=== PATIENT | male | born 1930 | race Two or more races ===

== ENCOUNTER 2017-04-30 12:37 | Inpatient (IN) | payer OTHER ==
[~2017-04-30] VITALS: Ht 172.7 cm; Wt 56.0 kg
[2017-04-30] MEDS ORDERED: SODIUM CHLORIDE 0.9% 1,000 ML IV ONE ×3 (12:58→15:09)
[2017-04-30] MEDS ORDERED: IPRATROPIUM BROM 0.5 MG/2.5ML INH SOL NEB ONE ×2 (13:00→18:00)
[2017-04-30] MEDS ORDERED: ALBUTEROL SULF 2.5 MG/0.5ML(0.5%) NEB SOLN NEB ONE ×2 (13:00→18:00)
[2017-04-30] MEDS ORDERED: methylPREDNISolone SOD SUCC 125 MG/2 ML VL IV ONE (13:00)
[2017-04-30 13:40] LABS: Basophils # (auto) 0 uL; Basophils % (auto) 0.1 % (0.0-2.0); Eosinophils # (auto) 0 uL; Hematocrit 32.5 % (41.0-53.0); Hemoglobin 10.7 g/dL (13.5-17.5); Lymphocytes # (auto) 0.7 uL; Lymphocytes % (auto) 3.3 % (10.0-50.0); Mean Corpuscular Hemoglobin 29.9 pg (28.0-32.0); Mean Corpuscular Volume 90.7 fL (80.0-100.0); Mean Platelet Volume 9.4 fL (6.9-10.8); Monocytes # (auto) 0.9 uL; Monocytes % (auto) 4.2 % (0.0-12.0); Neutrophils # (auto) 20.1 uL; Neutrophils % (auto) 92.4 % (37.0-80.0); Platelet Count (auto) 177 10^3/uL (140-450); Red Cell Distribution Width 15.3 % (11.8-14.3); White Blood Cell 21.8 10^3/uL (4.4-10.8)
[2017-04-30] MEDS ORDERED: ETOMIDATE (2MG/ML) 20ML VIAL IV ONE ×3 (13:40→14:00)
[2017-04-30] MEDS ORDERED: SUCCINYLCHOLINE CHLORIDE 20 MG/ML 10ML VIAL IV ONE ×2 (13:41→13:45)
[2017-04-30 13:56] LABS: INR 0.93 (0.9-1.15); Partial Thromboplastin Time 37.2 sec (22.64-33.71); Prothrombin Time 10.1 sec (9.37-12.3)
[2017-04-30] MEDS ORDERED: PROPOFOL 100 ML IV ONE (13:58)
[2017-04-30 14:02] LABS: Albumin 3.1 g/dL (3.4-5.0); Bilirubin, Total 0.6 mg/dL (0.2-1.0); Calcium 8.7 mg/dL (8.5-10.1); Total Protein 8.6 g/dL (6.4-8.2)
[2017-04-30] MEDS: PROPOFOL 100 ML IV SCH (14:09)
[2017-04-30] MEDS: MIDAZOLAM DRIP 50 mg/50mL 50 ML IV SCH (14:15)
[2017-04-30] MEDS ORDERED: MIDAZOLAM DRIP 50 mg/50mL 50 ML IV ONE ×2 (14:16→17:49)
[2017-04-30 14:19] LABS: B-Type Natriuretic Peptide 197.2 pg/mL (0-100)
[2017-04-30 14:30] LABS: Temperature: 22.4 C (20.0-25.0)
[2017-04-30] MEDS ORDERED: AZITHROMYCIN 500MG/ 250ML 250 ML IV ONE (15:00)
[2017-04-30] MEDS ORDERED: ENOXAPARIN SOD 80 MG/0.8ML SYRINGE SC ONE (15:00)
[2017-04-30] MEDS ORDERED: cefTRIAXone 1GM/50ML D5W 50 ML IV ONE (15:00)
[2017-04-30 15:05] LABS: Base Excess -12.8 mmol/L (-2.0-2.0); Blood 02Sat 98.8 % (96-100); Blood COHb 0.3 % (0.5-1.5); Blood MetHb 0.3 % (0.0-1.5); HCO3 14.9 mmol/L (22-26.0); HHb 1.2 % (0.0-5.0); MODE VENT - A/C; O2Hb 98.2 % (94.0-97.0); PCO2 40.9 mmHg (35.0-45.0); PCO2(T) 40.9 mmHg (35.0-45.0); Sample Type Arterial; pH 7.178 (7.350-7.450)
[2017-04-30] MEDS ORDERED: VANCOMYCIN 1GM/250ML 250 ML IV ONE ×2 (16:30→20:00)
[2017-04-30] MEDS ORDERED: MORPHINE SULF INJ 2 MG/ML SYRINGE 1ML IV PRN (16:30)
[2017-04-30] MEDS ORDERED: VANCOMYCIN PER PHARMACY 0 MG IV SCH (16:30)
[2017-04-30] MEDS: SODIUM CHLORIDE 0.9% 1,000 ML IV SCH (16:30)
[2017-04-30] MEDS ORDERED: NITROGLYCERIN 0.4 MG SL TAB SL PRN (16:30)
[2017-04-30] MEDS ORDERED: ACETAMINOPHEN 325 MG TAB PO PRN (16:30)
[2017-04-30 17:35] VITALS: BP 105/53
[2017-04-30 18:09] LABS: Basophils # (auto) 0 uL; Eosinophils # (auto) 0 uL; Lymphocytes # (auto) 0.2 uL
[2017-04-30 18:11] LABS: Hematocrit 24.4 % (41.0-53.0); Hemoglobin 8.1 g/dL (13.5-17.5); Mean Corpuscular Hemoglobin 30.5 pg (28.0-32.0); Mean Corpuscular Hgb Conc. 33.1 g/dL (32.0-36.0); Mean Corpuscular Volume 92.1 fL (80.0-100.0); Mean Platelet Volume 9.7 fL (6.9-10.8); Monocytes # (auto) 0.5 uL; Neutrophils # (auto) 14.5 uL; Platelet Count (auto) 128 10^3/uL (140-450); Red Cell Distribution Width 15.1 % (11.8-14.3); White Blood Cell 15.1 10^3/uL (4.4-10.8)
[2017-04-30 18:24] LABS: INR 0.96 (0.9-1.15); Partial Thromboplastin Time 60.6 sec (22.64-33.71); Prothrombin Time 10.5 sec (9.37-12.3)
[2017-04-30] MEDS: PIPERACILLIN-TAZOB 2.25GM 50 ML IV SCH (18:41)
[2017-04-30 18:45] LABS: Albumin 2.2 g/dL (3.4-5.0); BUN/Creatinine Ratio 14.7; Bilirubin, Total 0.3 mg/dL (0.2-1.0); Calcium 7.3 mg/dL (8.5-10.1); Magnesium 2.4 mg/dL (1.6-2.6); Potassium 5.3 mmol/L (3.5-5.1); Total Protein 6.7 g/dL (6.4-8.2)
[2017-04-30 20:00] VITALS: BP 110/51
[2017-04-30 20:00] LABS: Urine Bilirubin Negative (Negative); Urine Blood 2+ /uL (Negative); Urine Color Yellow (Yellow); Urine Glucose 2+ mg/dL (Normal); Urine Ketone Negative (Negative); Urine Nitrite Negative (Negative); Urine RBC 358 /hpf (0 - 3); Urine Urobilinogen Normal (Negative)
[2017-04-30 21:42] LABS: Allen Test Yes; Blood 02Sat 97.2 % (96-100); Blood COHb 0.1 % (0.5-1.5); Blood MetHb 0.2 % (0.0-1.5); HCO3 13.8 mmol/L (22-26.0); HHb 2.8 % (0.0-5.0); MODE VENT - A/C; O2Hb 96.9 % (94.0-97.0); PCO2 35.3 mmHg (35.0-45.0); PCO2(T) 35.3 mmHg (35.0-45.0); PO2 116.5 mmHg (80.0-100.0); PO2(T) 116.5 mmHg (80.0-100.0); Room 1016-ERT; Sample Type Arterial; pH 7.211 (7.350-7.450)
[2017-04-30 22:33] VITALS: BP 93/45
[2017-04-30] MEDS: methylPREDNISolone SOD SUCC 40 MG/ML VL IV SCH (22:40)
[2017-04-30 23:07] VITALS: BP 93/45
[2017-04-30 23:52] VITALS: BP 100/52
[2017-04-30] MEDS: ALBUTEROL SULF 2.5 MG/0.5ML(0.5%) NEB SOLN NEB SCH (23:56)
[2017-04-30] MEDS: IPRATROPIUM BROM 0.5 MG/2.5ML INH SOL NEB SCH (23:57)
[2017-05-01] VITALS (62 sets, daily range): BP systolic 83–139; BP diastolic 41–73
[2017-05-01 01:02] LABS: Basophils # (auto) 0 uL; Basophils % (auto) 0.1 % (0.0-2.0); Eosinophils # (auto) 0 uL; Lymphocytes # (auto) 0.3 uL; Monocytes # (auto) 0.3 uL; Monocytes % (auto) 3.2 % (0.0-12.0); Red Cell Distribution Width 15.4 % (11.8-14.3)
[2017-05-01 01:03] LABS: Hematocrit 24.5 % (41.0-53.0); Lymphocytes % (auto) 3.1 % (10.0-50.0); Mean Corpuscular Hemoglobin 30.3 pg (28.0-32.0); Mean Corpuscular Hgb Conc. 32.4 g/dL (32.0-36.0); Mean Corpuscular Volume 93.6 fL (80.0-100.0); Neutrophils # (auto) 9.2 uL; Neutrophils % (auto) 93.6 % (37.0-80.0); Platelet Count (auto) 117 10^3/uL (140-450); White Blood Cell 9.8 10^3/uL (4.4-10.8)
[2017-05-01 01:19] LABS: Albumin 2.2 g/dL (3.4-5.0); BUN/Creatinine Ratio 15.1; Bilirubin, Total 0.3 mg/dL (0.2-1.0); Calcium 7.5 mg/dL (8.5-10.1); Potassium 5.3 mmol/L (3.5-5.1); Total Protein 6.6 g/dL (6.4-8.2)
[2017-05-01] MEDS: PIPERACILLIN-TAZOB 2.25GM 50 ML IV SCH ×3 (01:39→17:16)
[2017-05-01 01:55] LABS: INR 0.92 (0.9-1.15); Partial Thromboplastin Time 40.6 sec (22.64-33.71)
[2017-05-01] MEDS ORDERED: FUROSEMIDE 100 MG/10ML VIAL IV ONE (04:15)
[2017-05-01] MEDS: SODIUM CHLORIDE 0.9% 1,000 ML IV SCH (05:00)
[2017-05-01] MEDS: methylPREDNISolone SOD SUCC 40 MG/ML VL IV SCH ×3 (06:00→22:37)
[2017-05-01 06:02] LABS: Basophils # (auto) 0 uL; Eosinophils # (auto) 0 uL; Hemoglobin 8.1 g/dL (13.5-17.5); Monocytes # (auto) 0.5 uL; Nucleated Red Blood Cells % 0.1 %; Platelet Count (auto) 117 10^3/uL (140-450)
[2017-05-01 06:04] LABS: Hematocrit 24.2 % (41.0-53.0); Lymphocytes # (auto) 0.5 uL; Lymphocytes % (auto) 5.2 % (10.0-50.0); Mean Corpuscular Hemoglobin 30.8 pg (28.0-32.0); Mean Corpuscular Hgb Conc. 33.5 g/dL (32.0-36.0); Mean Platelet Volume 9.5 fL (6.9-10.8); Monocytes % (auto) 5.8 % (0.0-12.0); Neutrophils # (auto) 8.2 uL; White Blood Cell 9.2 10^3/uL (4.4-10.8)
[2017-05-01] MEDS: ALBUTEROL SULF 2.5 MG/0.5ML(0.5%) NEB SOLN NEB SCH ×3 (06:04→18:30)
[2017-05-01] MEDS: IPRATROPIUM BROM 0.5 MG/2.5ML INH SOL NEB SCH ×3 (06:04→18:30)
[2017-05-01 06:18] LABS: INR 0.91 (0.9-1.15); Partial Thromboplastin Time 46.8 sec (22.64-33.71); Prothrombin Time 9.9 sec (9.37-12.3)
[2017-05-01 06:30] LABS: Albumin 2.1 g/dL (3.4-5.0); Calcium 7.8 mg/dL (8.5-10.1); Magnesium 2.5 mg/dL (1.6-2.6); Potassium 5.3 mmol/L (3.5-5.1)
[2017-05-01 06:33] LABS: BUN/Creatinine Ratio 14.7; Bilirubin, Total 0.3 mg/dL (0.2-1.0); Total Protein 6.5 g/dL (6.4-8.2)
[2017-05-01 07:58] LABS: Allen Test No; Base Excess -15.1 mmol/L (-2.0-2.0); Blood 02Sat 97.8 % (96-100); Blood COHb 0.2 % (0.5-1.5); Blood MetHb 0.2 % (0.0-1.5); HCO3 12.2 mmol/L (22-26.0); HHb 2.2 % (0.0-5.0); MODE VENT - A/C; O2Hb 97.4 % (94.0-97.0); PCO2 33.7 mmHg (35.0-45.0); PCO2(T) 33.7 mmHg (35.0-45.0); PO2 131.9 mmHg (80.0-100.0); PO2(T) 131.9 mmHg (80.0-100.0); Sample Type Arterial; pH 7.176 (7.350-7.450)
[2017-05-01] MEDS ORDERED: SODIUM BICARBONATE 50ML VIAL 75 ML in SOD CHL 0.45% 1,000 ML IV SCH (08:00)
[2017-05-01] MEDS: MIDAZOLAM DRIP 50 mg/50mL 50 ML IV SCH ×2 (09:03→14:00)
[2017-05-01] MEDS ORDERED: SODIUM BICARBONATE 50ML VIAL 150 ML in SOD CHL 0.45% 1,000 ML IV SCH (09:30)
[2017-05-01] MEDS ORDERED: SODIUM BICARBONATE 8.4 % INJ 50ML VIAL IV ONE ×2 (09:30→13:30)
[2017-05-01] MEDS ORDERED: DEXTROSE (50%) 50ML SYRG IV ONE (12:30)
[2017-05-01] MEDS ORDERED: InsuLIN REG 1unit/0.01ml Soln (100units/ml) IV ONE (12:30)
[2017-05-01 12:31] LABS: Allen Test Modified; Base Excess -9.2 mmol/L (-2.0-2.0); Blood 02Sat 97.7 % (96-100); Blood COHb 0.2 % (0.5-1.5); Blood MetHb 0.3 % (0.0-1.5); HCO3 17.2 mmol/L (22-26.0); HHb 2.3 % (0.0-5.0); MODE VENT - A/C; O2Hb 97.2 % (94.0-97.0); PCO2 39.3 mmHg (35.0-45.0); PCO2(T) 39.3 mmHg (35.0-45.0); PO2 126.7 mmHg (80.0-100.0); PO2(T) 126.7 mmHg (80.0-100.0); Sample Type Arterial; pH 7.258 (7.350-7.450)
[2017-05-01] MEDS ORDERED: FUROSEMIDE 40 MG/4 ML VIAL IV ONE (13:30)
[2017-05-01] MEDS: SODIUM BICARBONATE 50ML VIAL 150 ML in SOD CHL 0.45% 1,000 ML IV SCH (13:55)
[2017-05-01] MEDS ORDERED: IPRATROPIUM BROM 0.5 MG/2.5ML INH SOL NEB SCH (18:00)
[2017-05-01] MEDS ORDERED: ALBUTEROL SULF 2.5 MG/0.5ML(0.5%) NEB SOLN NEB SCH (18:00)
[2017-05-01 18:40] LABS: Basophils # (auto) 0 uL; Basophils % (auto) 0.1 % (0.0-2.0); Eosinophils # (auto) 0 uL; Hematocrit 24.7 % (41.0-53.0); Hemoglobin 8.2 g/dL (13.5-17.5); Lymphocytes # (auto) 0.4 uL; Lymphocytes % (auto) 5.1 % (10.0-50.0); Mean Corpuscular Hemoglobin 30.1 pg (28.0-32.0); Mean Corpuscular Hgb Conc. 33.2 g/dL (32.0-36.0); Mean Corpuscular Volume 90.6 fL (80.0-100.0); Mean Platelet Volume 9.4 fL (6.9-10.8); Monocytes # (auto) 0.6 uL; Monocytes % (auto) 7.5 % (0.0-12.0); Neutrophils # (auto) 7.3 uL; Neutrophils % (auto) 87.3 % (37.0-80.0); Nucleated Red Blood Cells % 0.2 %; Platelet Count (auto) 119 10^3/uL (140-450); Red Cell Distribution Width 14.9 % (11.8-14.3); White Blood Cell 8.4 10^3/uL (4.4-10.8)
[2017-05-01 18:44] LABS: INR 0.95 (0.9-1.15); Partial Thromboplastin Time 39.1 sec (22.64-33.71); Prothrombin Time 10.3 sec (9.37-12.3)
[2017-05-01 18:51] LABS: Albumin 1.9 g/dL (3.4-5.0); Alkaline Phosphatase 61 U/L (45-117); Anion Gap 15 (5-15); Aspartate Aminotransferase 101 U/L (15-37); BUN/Creatinine Ratio 16.6; Bilirubin, Direct < 0.1 mg/dL (0-0.2); Bilirubin, Total 0.3 mg/dL (0.2-1.0); Calcium 7.4 mg/dL (8.5-10.1); Carbon Dioxide 21 mmol/L (21-32); Chloride 107 mmol/L (98-107); GFR African American 11 mL/min; GFR Non-African American 9 mL/min; Glucose 152 mg/dL (74-106); Magnesium 2.6 mg/dL (1.6-2.6); Potassium 4.2 mmol/L (3.5-5.1); Sodium 143 mmol/L (136-145); Total Protein 6.2 g/dL (6.4-8.2)
[2017-05-01 18:55] LABS: Blood Urea Nitrogen 101 mg/dL (7-18)
[2017-05-01] MEDS: PROPOFOL 100 ML IV SCH (21:28)
[2017-05-02] VITALS (82 sets, daily range): BP systolic 90–145; BP diastolic 44–75
[2017-05-02] MEDS: IPRATROPIUM BROM 0.5 MG/2.5ML INH SOL NEB SCH ×4 (00:13→18:36)
[2017-05-02] MEDS: ALBUTEROL SULF 2.5 MG/0.5ML(0.5%) NEB SOLN NEB SCH ×4 (00:13→18:36)
[2017-05-02] MEDS ORDERED: SODIUM BICARBONATE 8.4% INJ 50ML SYRINGE ONE ×2 (00:37→00:55)
[2017-05-02] MEDS: PIPERACILLIN-TAZOB 2.25GM 50 ML IV SCH ×3 (00:52→16:38)
[2017-05-02 04:01] LABS: Basophils # (auto) 0 uL; Basophils % (auto) 0.1 % (0.0-2.0); Eosinophils # (auto) 0 uL; Hematocrit 23.2 % (41.0-53.0); Hemoglobin 7.9 g/dL (13.5-17.5); Mean Corpuscular Hemoglobin 30.4 pg (28.0-32.0); Mean Corpuscular Hgb Conc. 33.9 g/dL (32.0-36.0); Mean Platelet Volume 9.4 fL (6.9-10.8); Monocytes # (auto) 0.4 uL; Nucleated Red Blood Cells % 0.2 %; Red Cell Distribution Width 14.6 % (11.8-14.3)
[2017-05-02 04:05] LABS: Lymphocytes # (auto) 0.4 uL; Lymphocytes % (auto) 5.3 % (10.0-50.0); Mean Corpuscular Volume 89.7 fL (80.0-100.0); Neutrophils # (auto) 7.2 uL; Neutrophils % (auto) 89.6 % (37.0-80.0); Platelet Count (auto) 144 10^3/uL (140-450); White Blood Cell 8.1 10^3/uL (4.4-10.8)
[2017-05-02 04:24] LABS: INR 0.96 (0.9-1.15); Partial Thromboplastin Time 35.7 sec (22.64-33.71); Prothrombin Time 10.5 sec (9.37-12.3)
[2017-05-02 04:33] LABS: Alkaline Phosphatase 59 U/L (45-117); Anion Gap 15 (5-15); Aspartate Aminotransferase 74 U/L (15-37); BUN/Creatinine Ratio 16.4; Bilirubin, Direct < 0.1 mg/dL (0-0.2); Bilirubin, Total 0.3 mg/dL (0.2-1.0); Calcium 7.2 mg/dL (8.5-10.1); Carbon Dioxide 23 mmol/L (21-32); Chloride 106 mmol/L (98-107); GFR African American 11 mL/min; GFR Non-African American 9 mL/min; Glucose 149 mg/dL (74-106); Magnesium 2.6 mg/dL (1.6-2.6); Potassium 4.1 mmol/L (3.5-5.1); Sodium 144 mmol/L (136-145); Total Protein 6.3 g/dL (6.4-8.2)
[2017-05-02 04:41] LABS: Blood Urea Nitrogen 100 mg/dL (7-18)
[2017-05-02] MEDS: SODIUM BICARBONATE 50ML VIAL 150 ML in SOD CHL 0.45% 1,000 ML IV SCH (04:50)
[2017-05-02] MEDS: methylPREDNISolone SOD SUCC 40 MG/ML VL IV SCH ×3 (05:53→22:24)
[2017-05-02 07:35] LABS: Base Excess -0.4 mmol/L (-2.0-2.0); Blood 02Sat 93.4 % (96-100); Blood COHb 0.4 % (0.5-1.5); Blood MetHb 0.3 % (0.0-1.5); HCO3 24.1 mmol/L (22-26.0); HHb 6.6 % (0.0-5.0); MODE VENT - A/C; O2Hb 92.7 % (94.0-97.0); PCO2 38.8 mmHg (35.0-45.0); PCO2(T) 38.8 mmHg (35.0-45.0); PO2 72.5 mmHg (80.0-100.0); PO2(T) 72.5 mmHg (80.0-100.0); Sample Type Arterial; pH 7.411 (7.350-7.450)
[2017-05-02] MEDS: SOD CHL 0.45% 1,000 ML IV SCH ×3 (08:30→22:25)
[2017-05-02] MEDS: MIDAZOLAM DRIP 50 mg/50mL 50 ML IV SCH (09:51)
[2017-05-02] MEDS: PROPOFOL 100 ML IV SCH (09:51)
[2017-05-02] MEDS: PANTOPRAZOLE 40 MG/10 ML VIAL IV SCH (09:51)
[2017-05-02 12:42] LABS: Allen Test Yes; Base Excess 1.6 mmol/L (-2.0-2.0); Blood 02Sat 93.4 % (96-100); Blood COHb 0.3 % (0.5-1.5); Blood MetHb 0.4 % (0.0-1.5); HCO3 26.3 mmol/L (22-26.0); HHb 6.6 % (0.0-5.0); MODE VENT - SIMV; O2Hb 92.7 % (94.0-97.0); PCO2 41.9 mmHg (35.0-45.0); PCO2(T) 41.9 mmHg (35.0-45.0); PO2 75.9 mmHg (80.0-100.0); PO2(T) 75.9 mmHg (80.0-100.0); Pressure Support 10; Sample Type Arterial; pH 7.415 (7.350-7.450)
[2017-05-02] MEDS: cefTRIAXone 1GM/50ML D5W 50 ML IV SCH (14:02)
[2017-05-02 18:32] LABS: Base Excess -0.9 mmol/L (-2.0-2.0); Blood 02Sat 94.9 % (96-100); Blood COHb 0.2 % (0.5-1.5); Blood MetHb 0.4 % (0.0-1.5); HCO3 23.3 mmol/L (22-26.0); HHb 5.1 % (0.0-5.0); MODE VENT - SIMV; O2Hb 94.3 % (94.0-97.0); PCO2 36.2 mmHg (35.0-45.0); PCO2(T) 36.2 mmHg (35.0-45.0); Pressure Support 10; Sample Type Arterial; pH 7.426 (7.350-7.450)
[2017-05-03] VITALS (72 sets, daily range): BP systolic 104–151; BP diastolic 54–77
[2017-05-03] MEDS: ALBUTEROL SULF 2.5 MG/0.5ML(0.5%) NEB SOLN NEB SCH ×4 (00:24→18:50)
[2017-05-03] MEDS: IPRATROPIUM BROM 0.5 MG/2.5ML INH SOL NEB SCH ×4 (00:24→18:50)
[2017-05-03] MEDS: PIPERACILLIN-TAZOB 2.25GM 50 ML IV SCH ×4 (01:00→23:48)
[2017-05-03 04:08] LABS: Basophils # (auto) 0 uL; Eosinophils # (auto) 0 uL; Hemoglobin 7.7 g/dL (13.5-17.5); Lymphocytes # (auto) 0.3 uL; Monocytes # (auto) 0.2 uL
[2017-05-03 04:11] LABS: Basophils % (auto) 0.1 % (0.0-2.0); Hematocrit 22.4 % (41.0-53.0); Lymphocytes % (auto) 5.6 % (10.0-50.0); Mean Corpuscular Hemoglobin 30.5 pg (28.0-32.0); Mean Corpuscular Hgb Conc. 34.4 g/dL (32.0-36.0); Mean Corpuscular Volume 88.7 fL (80.0-100.0); Mean Platelet Volume 9.2 fL (6.9-10.8); Monocytes % (auto) 3.4 % (0.0-12.0); Neutrophils # (auto) 5.4 uL; Neutrophils % (auto) 90.9 % (37.0-80.0); Nucleated Red Blood Cells % 0.1 %; Platelet Count (auto) 150 10^3/uL (140-450); Red Cell Distribution Width 14.4 % (11.8-14.3)
[2017-05-03 04:37] LABS: Calcium 6.6 mg/dL (8.5-10.1); Magnesium 2.6 mg/dL (1.6-2.6); Potassium 3.9 mmol/L (3.5-5.1)
[2017-05-03] MEDS: methylPREDNISolone SOD SUCC 40 MG/ML VL IV SCH ×3 (04:39→22:16)
[2017-05-03 07:04] LABS: Allen Test Yes; Base Excess -2.6 mmol/L (-2.0-2.0); Blood COHb 0.1 % (0.5-1.5); Blood MetHb 0.3 % (0.0-1.5); HCO3 22.2 mmol/L (22-26.0); MODE VENT - SIMV; O2Hb 93.6 % (94.0-97.0); PCO2 38.2 mmHg (35.0-45.0); PCO2(T) 38.2 mmHg (35.0-45.0); PIP 15; PO2 81.8 mmHg (80.0-100.0); PO2(T) 81.8 mmHg (80.0-100.0); Pressure Support 10; Sample Type Arterial; Spont Vt 457; pH 7.382 (7.350-7.450)
[2017-05-03] MEDS: cefTRIAXone 1GM/50ML D5W 50 ML IV SCH (07:52)
[2017-05-03] MEDS ORDERED: cefTRIAXone 1GM/10ml IVPUSH 10 ML IV SCH (09:00)
[2017-05-03] MEDS: PANTOPRAZOLE 40 MG/10 ML VIAL IV SCH (09:44)
[2017-05-03] MEDS: PROPOFOL 100 ML IV SCH (14:07)
[2017-05-03] MEDS: MIDAZOLAM DRIP 50 mg/50mL 50 ML IV SCH (14:15)
[2017-05-03] MEDS: SOD CHL 0.45% 1,000 ML IV SCH (14:30)
[2017-05-04] VITALS (53 sets, daily range): BP systolic 119–159; BP diastolic 56–92
[2017-05-04] MEDS: IPRATROPIUM BROM 0.5 MG/2.5ML INH SOL NEB SCH ×4 (00:30→18:01)
[2017-05-04] MEDS: SOD CHL 0.45% 1,000 ML IV SCH ×3 (00:30→20:30)
[2017-05-04] MEDS: ALBUTEROL SULF 2.5 MG/0.5ML(0.5%) NEB SOLN NEB SCH ×4 (00:30→18:01)
[2017-05-04 05:08] LABS: Basophils # (auto) 0 uL; Basophils % (auto) 0.1 % (0.0-2.0); Eosinophils # (auto) 0 uL; Lymphocytes # (auto) 0.3 uL; Monocytes # (auto) 0.1 uL; Neutrophils # (auto) 4.1 uL; Nucleated Red Blood Cells % 0.4 %
[2017-05-04 05:10] LABS: Hematocrit 22.9 % (41.0-53.0); Hemoglobin 7.7 g/dL (13.5-17.5); Lymphocytes % (auto) 7.1 % (10.0-50.0); Mean Corpuscular Hemoglobin 30.4 pg (28.0-32.0); Mean Corpuscular Hgb Conc. 33.6 g/dL (32.0-36.0); Mean Corpuscular Volume 90.5 fL (80.0-100.0); Mean Platelet Volume 8.7 fL (6.9-10.8); Monocytes % (auto) 2.7 % (0.0-12.0); Neutrophils % (auto) 90.1 % (37.0-80.0); Platelet Count (auto) 146 10^3/uL (140-450); White Blood Cell 4.6 10^3/uL (4.4-10.8)
[2017-05-04 05:27] LABS: Albumin 1.9 g/dL (3.4-5.0); BUN/Creatinine Ratio 20.4; Bilirubin, Total 0.3 mg/dL (0.2-1.0); Calcium 6.4 mg/dL (8.5-10.1); Potassium 4.2 mmol/L (3.5-5.1); Total Protein 6.1 g/dL (6.4-8.2)
[2017-05-04] MEDS: methylPREDNISolone SOD SUCC 40 MG/ML VL IV SCH ×3 (06:00→22:00)
[2017-05-04] MEDS ORDERED: cefTRIAXone 1GM/10ml IVPUSH 10 ML IV SCH (09:00)
[2017-05-04] MEDS: PANTOPRAZOLE 40 MG/10 ML VIAL IV SCH (10:30)
[2017-05-04] MEDS: PIPERACILLIN-TAZOB 2.25GM 50 ML IV SCH ×2 (10:30→18:14)
[2017-05-04] MEDS: PROPOFOL 100 ML IV SCH (14:07)
[2017-05-04] MEDS: MIDAZOLAM DRIP 50 mg/50mL 50 ML IV SCH (14:15)
[2017-05-04] MEDS ORDERED: MORPHINE SULF INJ 2 MG/ML SYRINGE 1ML ONE (16:12)
[2017-05-04] MEDS: MORPHINE SULF INJ 2 MG/ML SYRINGE 1ML IV PRN ×2 (16:37→20:35)
[2017-05-05] VITALS (73 sets, daily range): BP systolic 123–160; BP diastolic 55–87
[2017-05-05] MEDS: ALBUTEROL SULF 2.5 MG/0.5ML(0.5%) NEB SOLN NEB SCH ×4 (00:04→18:33)
[2017-05-05] MEDS: IPRATROPIUM BROM 0.5 MG/2.5ML INH SOL NEB SCH ×4 (00:04→18:34)
[2017-05-05] MEDS: PIPERACILLIN-TAZOB 2.25GM 50 ML IV SCH ×3 (02:09→18:02)
[2017-05-05 04:35] LABS: Basophils # (auto) 0 uL; Basophils % (auto) 0.1 % (0.0-2.0); Eosinophils # (auto) 0 uL; Hematocrit 27.2 % (41.0-53.0); Lymphocytes # (auto) 0.3 uL; Lymphocytes % (auto) 6.4 % (10.0-50.0); Mean Corpuscular Hgb Conc. 33.2 g/dL (32.0-36.0); Mean Corpuscular Volume 90.4 fL (80.0-100.0); Mean Platelet Volume 8.2 fL (6.9-10.8); Monocytes # (auto) 0.1 uL; Monocytes % (auto) 2.1 % (0.0-12.0); Neutrophils # (auto) 4.3 uL; Neutrophils % (auto) 91.4 % (37.0-80.0); Platelet Count (auto) 158 10^3/uL (140-450); Red Cell Distribution Width 14.3 % (11.8-14.3); White Blood Cell 4.7 10^3/uL (4.4-10.8)
[2017-05-05 04:51] LABS: Calcium 6.9 mg/dL (8.5-10.1); Potassium 4.4 mmol/L (3.5-5.1)
[2017-05-05] MEDS: methylPREDNISolone SOD SUCC 40 MG/ML VL IV SCH ×3 (06:00→22:11)
[2017-05-05] MEDS: SOD CHL 0.45% 1,000 ML IV SCH (06:30)
[2017-05-05 07:49] LABS: Allen Test Modified; Base Excess -8.1 mmol/L (-2.0-2.0); Blood COHb 0.3 % (0.5-1.5); Blood MetHb 0.3 % (0.0-1.5); HCO3 18.4 mmol/L (22-26.0); MODE VENT - SIMV; O2Hb 94.4 % (94.0-97.0); PCO2 41.7 mmHg (35.0-45.0); PCO2(T) 41.7 mmHg (35.0-45.0); PO2 89.8 mmHg (80.0-100.0); PO2(T) 89.8 mmHg (80.0-100.0); Pressure Support 8; Sample Type Arterial; pH 7.262 (7.350-7.450)
[2017-05-05] MEDS: MORPHINE SULF INJ 2 MG/ML SYRINGE 1ML IV PRN ×3 (08:34→19:26)
[2017-05-05 09:20] LABS: INR 1.2 (0.9-1.15); Partial Thromboplastin Time 33.6 sec (22.64-33.71); Prothrombin Time 13.1 sec (9.37-12.3)
[2017-05-05] MEDS ORDERED: SOD CHL 0.45% 1,000 ML IV SCH (09:45)
[2017-05-05] MEDS ORDERED: SODIUM BICARBONATE 8.4 % INJ 50ML VIAL IV ONE (09:45)
[2017-05-05] MEDS ORDERED: D5W 5% 1,000 ML IV SCH (10:00)
[2017-05-05] MEDS: PANTOPRAZOLE 40 MG/10 ML VIAL IV SCH (10:15)
[2017-05-05] MEDS ORDERED: SODIUM CHL 0.9% 1000 ML BAG XX ONE (10:15)
[2017-05-05] MEDS ORDERED: PHYTONADIONE (VIT K)10 MG/ML 1ML VIAL SUBCUT ONE (10:45)
[2017-05-05 11:02] LABS: Allen Test Modified; Base Excess -9.5 mmol/L (-2.0-2.0); Blood 02Sat 94.7 % (96-100); Blood COHb 0.2 % (0.5-1.5); Blood MetHb 0.2 % (0.0-1.5); HCO3 17.4 mmol/L (22-26.0); HHb 5.3 % (0.0-5.0); MODE VENT - A/C; O2Hb 94.3 % (94.0-97.0); PCO2 41.8 mmHg (35.0-45.0); PCO2(T) 41.8 mmHg (35.0-45.0); PO2 90.5 mmHg (80.0-100.0); PO2(T) 90.5 mmHg (80.0-100.0); Sample Type Arterial; pH 7.236 (7.350-7.450)
[2017-05-05] MEDS: PROPOFOL 100 ML IV SCH (14:07)
[2017-05-05] MEDS: MIDAZOLAM DRIP 50 mg/50mL 50 ML IV SCH (14:15)
[2017-05-05 15:29] LABS: Allen Test Modified; Base Excess -7.4 mmol/L (-2.0-2.0); Blood 02Sat 94.9 % (96-100); Blood COHb 0.2 % (0.5-1.5); Blood MetHb 0.2 % (0.0-1.5); HHb 5.1 % (0.0-5.0); MODE VENT - A/C; O2Hb 94.5 % (94.0-97.0); PCO2 30.3 mmHg (35.0-45.0); PCO2(T) 30.3 mmHg (35.0-45.0); PO2 81.1 mmHg (80.0-100.0); PO2(T) 81.1 mmHg (80.0-100.0); Sample Type Arterial; pH 7.367 (7.350-7.450)
[2017-05-05] MEDS: SODIUM BICARB 50ML SYR 100 ML in D5W 5% 1,000 ML IV SCH ×2 (16:00→21:15)
[2017-05-05] MEDS ORDERED: MORPHINE SULF INJ 2 MG/ML SYRINGE 1ML IV ONE (21:30)
[2017-05-06] VITALS (78 sets, daily range): BP systolic 118–210; BP diastolic 60–104
[2017-05-06] MEDS: IPRATROPIUM BROM 0.5 MG/2.5ML INH SOL NEB SCH ×4 (00:16→18:30)
[2017-05-06] MEDS: ALBUTEROL SULF 2.5 MG/0.5ML(0.5%) NEB SOLN NEB SCH ×4 (00:16→18:30)
[2017-05-06] MEDS: PIPERACILLIN-TAZOB 2.25GM 50 ML IV SCH ×3 (02:00→18:12)
[2017-05-06] MEDS: SODIUM BICARB 50ML SYR 100 ML in D5W 5% 1,000 ML IV SCH ×3 (02:20→18:31)
[2017-05-06 03:31] LABS: Basophils # (auto) 0 uL; Basophils % (auto) 0.1 % (0.0-2.0); Eosinophils # (auto) 0 uL; Hematocrit 25.6 % (41.0-53.0); Hemoglobin 8.7 g/dL (13.5-17.5); Lymphocytes # (auto) 0.3 uL; Lymphocytes % (auto) 5.9 % (10.0-50.0); Mean Corpuscular Hemoglobin 30.1 pg (28.0-32.0); Mean Corpuscular Volume 88.5 fL (80.0-100.0); Mean Platelet Volume 8.3 fL (6.9-10.8); Monocytes # (auto) 0.2 uL; Monocytes % (auto) 3.8 % (0.0-12.0); Neutrophils # (auto) 4.2 uL; Neutrophils % (auto) 90.2 % (37.0-80.0); Nucleated Red Blood Cells % 0.1 %; Platelet Count (auto) 157 10^3/uL (140-450); Red Cell Distribution Width 13.8 % (11.8-14.3); White Blood Cell 4.6 10^3/uL (4.4-10.8)
[2017-05-06 03:45] LABS: BUN/Creatinine Ratio 23.8; Potassium 3.9 mmol/L (3.5-5.1)
[2017-05-06] MEDS: methylPREDNISolone SOD SUCC 40 MG/ML VL IV SCH ×3 (05:40→22:39)
[2017-05-06 06:43] LABS: Allen Test Modified; Base Excess -3.1 mmol/L (-2.0-2.0); Blood 02Sat 95.7 % (96-100); Blood COHb 0.3 % (0.5-1.5); Blood MetHb 0.3 % (0.0-1.5); HCO3 20.5 mmol/L (22-26.0); HHb 4.3 % (0.0-5.0); MODE VENT - A/C; O2Hb 95.1 % (94.0-97.0); Sample Type Arterial; pH 7.438 (7.350-7.450)
[2017-05-06] MEDS: PROPOFOL 100 ML IV SCH (14:07)
[2017-05-06] MEDS: MIDAZOLAM DRIP 50 mg/50mL 50 ML IV SCH (14:15)
[2017-05-06 14:59] LABS: Allen Test Modified; Blood 02Sat 92.6 % (96-100); Blood COHb 0.2 % (0.5-1.5); Blood MetHb 0.1 % (0.0-1.5); HCO3 25.5 mmol/L (22-26.0); HHb 7.4 % (0.0-5.0); MODE VENT - CPAP; O2Hb 92.3 % (94.0-97.0); PCO2 28.5 mmHg (35.0-45.0); PCO2(T) 28.5 mmHg (35.0-45.0); PO2 64.9 mmHg (80.0-100.0); PO2(T) 64.9 mmHg (80.0-100.0); Pressure Support 8; Sample Type Arterial; Spont Vt 800
[2017-05-06] MEDS: PANTOPRAZOLE 40 MG/10 ML VIAL IV SCH (15:05)
[2017-05-06] MEDS: hydrALAZINE HCL 20 MG/ML VL IV PRN (20:42)
[2017-05-07] VITALS (21 sets, daily range): BP systolic 129–199; BP diastolic 62–89
[2017-05-07] MEDS: ALBUTEROL SULF 2.5 MG/0.5ML(0.5%) NEB SOLN NEB SCH ×4 (00:03→18:42)
[2017-05-07] MEDS: IPRATROPIUM BROM 0.5 MG/2.5ML INH SOL NEB SCH ×4 (00:03→18:42)
[2017-05-07] MEDS: PIPERACILLIN-TAZOB 2.25GM 50 ML IV SCH ×3 (01:36→17:37)
[2017-05-07 04:41] LABS: BUN/Creatinine Ratio 20.9; Calcium 7.2 mg/dL (8.5-10.1); Potassium 3.3 mmol/L (3.5-5.1)
[2017-05-07 04:46] LABS: Basophils # (auto) 0 uL; Basophils % (auto) 0.1 % (0.0-2.0); Eosinophils # (auto) 0 uL; Hematocrit 27.5 % (41.0-53.0); Lymphocytes # (auto) 0.3 uL; Lymphocytes % (auto) 2.5 % (10.0-50.0); Mean Corpuscular Hemoglobin 29.5 pg (28.0-32.0); Mean Corpuscular Hgb Conc. 32.6 g/dL (32.0-36.0); Mean Corpuscular Volume 90.4 fL (80.0-100.0); Mean Platelet Volume 8.8 fL (6.9-10.8); Monocytes # (auto) 0.5 uL; Monocytes % (auto) 4.8 % (0.0-12.0); Neutrophils # (auto) 10.4 uL; Neutrophils % (auto) 92.6 % (37.0-80.0); Platelet Count (auto) 167 10^3/uL (140-450); Red Cell Distribution Width 14.1 % (11.8-14.3); White Blood Cell 11.3 10^3/uL (4.4-10.8)
[2017-05-07] MEDS: methylPREDNISolone SOD SUCC 40 MG/ML VL IV SCH ×3 (07:05→21:25)
[2017-05-07] MEDS: D5W/SOD CHL 0.45% 1,000 ML IV SCH (10:00)
[2017-05-07] MEDS ORDERED: POTASSIUM CHL 20 Meq TABLET PO ONE (10:00)
[2017-05-07] MEDS: PANTOPRAZOLE 40 MG/10 ML VIAL IV SCH (10:00)
[2017-05-07] MEDS: hydrALAZINE HCL 20 MG/ML VL IV PRN (17:16)
[2017-05-08] MEDS: D5W/SOD CHL 0.45% 1,000 ML IV SCH ×2 (00:39→12:40)
[2017-05-08 04:34] VITALS: BP 152/72
[2017-05-08 05:17] LABS: Basophils # (auto) 0 uL; Eosinophils # (auto) 0 uL; Hemoglobin 8.1 g/dL (13.5-17.5); Monocytes # (auto) 1.1 uL
[2017-05-08 05:19] LABS: Hematocrit 24.1 % (41.0-53.0); Lymphocytes # (auto) 0.4 uL; Lymphocytes % (auto) 3.3 % (10.0-50.0); Mean Corpuscular Hemoglobin 30.2 pg (28.0-32.0); Mean Corpuscular Hgb Conc. 33.8 g/dL (32.0-36.0); Mean Corpuscular Volume 89.5 fL (80.0-100.0); Mean Platelet Volume 8.7 fL (6.9-10.8); Monocytes % (auto) 8.6 % (0.0-12.0); Neutrophils # (auto) 11.8 uL; Neutrophils % (auto) 88.1 % (37.0-80.0); Platelet Count (auto) 148 10^3/uL (140-450); Red Cell Distribution Width 13.5 % (11.8-14.3); White Blood Cell 13.4 10^3/uL (4.4-10.8)
[2017-05-08 05:35] LABS: BUN/Creatinine Ratio 25.1; Calcium 7.5 mg/dL (8.5-10.1); Potassium 3.5 mmol/L (3.5-5.1)
[2017-05-08] MEDS: PIPERACILLIN-TAZOB 2.25GM 50 ML IV SCH ×3 (05:48→17:51)
[2017-05-08] MEDS: methylPREDNISolone SOD SUCC 40 MG/ML VL IV SCH ×3 (06:21→21:51)
[2017-05-08] MEDS: hydrALAZINE HCL 20 MG/ML VL IV PRN (06:23)
[2017-05-08] MEDS: ALBUTEROL SULF 2.5 MG/0.5ML(0.5%) NEB SOLN NEB SCH ×3 (07:20→19:35)
[2017-05-08] MEDS: IPRATROPIUM BROM 0.5 MG/2.5ML INH SOL NEB SCH ×3 (07:20→19:35)
[2017-05-08 09:00] VITALS: BP_SYST 118; BP_SYST 144; BP_DIAS 59; BP_DIAS 69
[2017-05-08] MEDS: PANTOPRAZOLE 40 MG/10 ML VIAL IV SCH (09:19)
[2017-05-08] MEDS ORDERED: POTASSIUM CHL 20 Meq TABLET PO ONE (11:30)
[2017-05-08 12:35] VITALS: BP 136/77
[2017-05-08 17:00] VITALS: BP 153/82
[2017-05-08 22:00] VITALS: BP 139/72
[2017-05-09] VITALS (9 sets, daily range): BP systolic 94–146; BP diastolic 42–82
[2017-05-09] MEDS: IPRATROPIUM BROM 0.5 MG/2.5ML INH SOL NEB SCH ×4 (00:40→19:09)
[2017-05-09] MEDS: ALBUTEROL SULF 2.5 MG/0.5ML(0.5%) NEB SOLN NEB SCH ×4 (00:40→19:09)
[2017-05-09] MEDS: PIPERACILLIN-TAZOB 2.25GM 50 ML IV SCH ×3 (01:51→17:39)
[2017-05-09] MEDS: D5W/SOD CHL 0.45% 1,000 ML IV SCH ×2 (01:51→15:20)
[2017-05-09] MEDS: methylPREDNISolone SOD SUCC 40 MG/ML VL IV SCH (06:03)
[2017-05-09 08:21] LABS: Basophils # (auto) 0 uL; Eosinophils # (auto) 0 uL; Lymphocytes # (auto) 0.6 uL; Lymphocytes % (auto) 3.9 % (10.0-50.0); Monocytes # (auto) 1.5 uL; Neutrophils # (auto) 12.9 uL
[2017-05-09 08:35] LABS: Albumin 2.2 g/dL (3.4-5.0); BUN/Creatinine Ratio 22.8; Bilirubin, Total 0.7 mg/dL (0.2-1.0); Calcium 7.8 mg/dL (8.5-10.1); Phosphorus 4.2 mg/dL (2.5-4.90); Total Protein 5.8 g/dL (6.4-8.2)
[2017-05-09 08:39] LABS: Basophils % (auto) 0.1 % (0.0-2.0); Hematocrit 20.9 % (41.0-53.0); Mean Corpuscular Hemoglobin 30.2 pg (28.0-32.0); Mean Corpuscular Hgb Conc. 32.9 g/dL (32.0-36.0); Mean Corpuscular Volume 91.8 fL (80.0-100.0); Mean Platelet Volume 9.3 fL (6.9-10.8); Monocytes % (auto) 9.9 % (0.0-12.0); Neutrophils % (auto) 86.1 % (37.0-80.0); Platelet Count (auto) 143 10^3/uL (140-450); Red Cell Distribution Width 13.9 % (11.8-14.3)
[2017-05-09 08:45] LABS: Hemoglobin 6.9 g/dL (13.5-17.5)
[2017-05-09] MEDS: PANTOPRAZOLE 40 MG/10 ML VIAL IV SCH (10:58)
[2017-05-10] MEDS: ALBUTEROL SULF 2.5 MG/0.5ML(0.5%) NEB SOLN NEB SCH ×4 (00:30→18:05)
[2017-05-10] MEDS: IPRATROPIUM BROM 0.5 MG/2.5ML INH SOL NEB SCH ×4 (00:30→18:05)
[2017-05-10] MEDS: PIPERACILLIN-TAZOB 2.25GM 50 ML IV SCH ×3 (02:19→18:22)
[2017-05-10] MEDS: D5W/SOD CHL 0.45% 1,000 ML IV SCH ×2 (02:20→18:18)
[2017-05-10 05:00] VITALS: BP 132/65
[2017-05-10 06:43] LABS: Hemoglobin 7.6 g/dL (13.5-17.5)
[2017-05-10 06:45] LABS: Hematocrit 22.9 % (41.0-53.0); Mean Corpuscular Hemoglobin 30.3 pg (28.0-32.0); Mean Corpuscular Hgb Conc. 33.4 g/dL (32.0-36.0); Mean Corpuscular Volume 90.7 fL (80.0-100.0); Platelet Count (auto) 137 10^3/uL (140-450); White Blood Cell 14.1 10^3/uL (4.4-10.8)
[2017-05-10 06:59] LABS: Metamyelocytes % 0; Myelocytes % 0; Promyelocytes % 0; Reactive Lymphocytes 0
[2017-05-10 07:02] LABS: Calcium 7.7 mg/dL (8.5-10.1); Potassium 3.5 mmol/L (3.5-5.1)
[2017-05-10 07:09] LABS: Albumin 2.1 g/dL (3.4-5.0); BUN/Creatinine Ratio 19.8; Total Protein 5.6 g/dL (6.4-8.2)
[2017-05-10 08:02] LABS: Platelet Estimate Decreased
[2017-05-10] MEDS ORDERED: IOHEXOL 350 MG/ML 100ML IJ ONE (09:08)
[2017-05-10] MEDS ORDERED: LIDOCAINE 2%HCL (LOCAL ANESTH.) INJ 20ML MDV ONE (09:09)
[2017-05-10] MEDS ORDERED: POTASSIUM CHL 20 Meq TABLET PO ONE (09:45)
[2017-05-10] MEDS ORDERED: EPOETIN ALFA 10,000 UNIT/1 ML VIAL IV ONE (11:15)
[2017-05-10] MEDS ORDERED: SODIUM CHL 0.9% 1000 ML BAG XX ONE (11:15)
[2017-05-10] MEDS: PANTOPRAZOLE 40 MG/10 ML VIAL IV SCH (15:07)
[2017-05-10] MEDS: methylPREDNISolone SOD SUCC 40 MG/ML VL IV SCH (15:07)
[2017-05-10 22:00] VITALS: BP 129/64
[2017-05-11] VITALS (8 sets, daily range): BP systolic 115–132; BP diastolic 51–79
[2017-05-11] MEDS: ALBUTEROL SULF 2.5 MG/0.5ML(0.5%) NEB SOLN NEB SCH ×4 (00:02→18:00)
[2017-05-11] MEDS: IPRATROPIUM BROM 0.5 MG/2.5ML INH SOL NEB SCH ×4 (00:02→18:00)
[2017-05-11] MEDS: PIPERACILLIN-TAZOB 2.25GM 50 ML IV SCH ×3 (02:42→17:33)
[2017-05-11] MEDS: D5W/SOD CHL 0.45% 1,000 ML IV SCH ×2 (05:00→17:33)
[2017-05-11 06:43] LABS: Basophils # (auto) 0 uL; Eosinophils # (auto) 0 uL; Lymphocytes # (auto) 0.9 uL; Mean Corpuscular Hgb Conc. 32.9 g/dL (32.0-36.0); Nucleated Red Blood Cells % 0.1 %
[2017-05-11 06:44] LABS: Basophils % (auto) 0.3 % (0.0-2.0); Eosinophils % (auto) 0.2 % (0.0-7.0); Hematocrit 21.1 % (41.0-53.0); Lymphocytes % (auto) 6.9 % (10.0-50.0); Mean Corpuscular Volume 91.4 fL (80.0-100.0); Mean Platelet Volume 9.8 fL (6.9-10.8); Monocytes # (auto) 2.4 uL; Neutrophils # (auto) 9.6 uL; Neutrophils % (auto) 73.8 % (37.0-80.0); Platelet Count (auto) 122 10^3/uL (140-450); Red Cell Distribution Width 14.2 % (11.8-14.3)
[2017-05-11 06:48] LABS: Monocytes % (auto) 18.8 % (0.0-12.0)
[2017-05-11 06:50] LABS: Hemoglobin 6.9 g/dL (13.5-17.5)
[2017-05-11 07:07] LABS: BUN/Creatinine Ratio 15.6; Bilirubin, Total 0.9 mg/dL (0.2-1.0); Calcium 7.3 mg/dL (8.5-10.1); Potassium 3.6 mmol/L (3.5-5.1); Total Protein 5.5 g/dL (6.4-8.2)
[2017-05-11 10:07] LABS: Vitamin D 25-Hydroxy 15 ng/mL (.); Vitamin D-2 25-Hydroxy <1.0 ng/mL (.)
[2017-05-11] MEDS: methylPREDNISolone SOD SUCC 40 MG/ML VL IV SCH (10:26)
[2017-05-11] MEDS: PANTOPRAZOLE 40 MG/10 ML VIAL IV SCH (10:26)
[2017-05-11] MEDS: D5W 5% 1,000 ML IV SCH (18:20)
[2017-05-11] MEDS: PRO-STAT 64 30ML PO SCH (22:33)
[2017-05-11] MEDS: Boost Breeze 8 Ounces PO SCH (22:34)
[2017-05-12] MEDS: IPRATROPIUM BROM 0.5 MG/2.5ML INH SOL NEB SCH ×4 (00:17→18:50)
[2017-05-12] MEDS: ALBUTEROL SULF 2.5 MG/0.5ML(0.5%) NEB SOLN NEB SCH ×4 (00:17→18:50)
[2017-05-12] MEDS: PIPERACILLIN-TAZOB 2.25GM 50 ML IV SCH ×3 (02:26→17:57)
[2017-05-12 05:40] VITALS: BP 121/60
[2017-05-12 06:41] LABS: BUN/Creatinine Ratio 15.1; Potassium 3.4 mmol/L (3.5-5.1)
[2017-05-12] MEDS: Boost Breeze 8 Ounces PO SCH ×3 (06:50→22:00)
[2017-05-12] MEDS: PRO-STAT 64 30ML PO SCH ×3 (06:51→22:00)
[2017-05-12 09:00] VITALS: BP 117/56
[2017-05-12] MEDS: PANTOPRAZOLE 40 MG/10 ML VIAL IV SCH (09:24)
[2017-05-12] MEDS: D5W 5% 1,000 ML IV SCH (09:24)
[2017-05-12] MEDS: methylPREDNISolone SOD SUCC 40 MG/ML VL IV SCH (09:25)
[2017-05-12 11:38] LABS: Hematocrit 24.8 % (41.0-53.0); Hemoglobin 8.1 g/dL (13.5-17.5)
[2017-05-12 13:00] VITALS: BP 120/60
[2017-05-12 21:33] VITALS: BP 99/53
[2017-05-12 21:59] VITALS: BP 99/53
[2017-05-13] VITALS (8 sets, daily range): BP systolic 103–129; BP diastolic 53–72
[2017-05-13] MEDS: ALBUTEROL SULF 2.5 MG/0.5ML(0.5%) NEB SOLN NEB SCH ×4 (01:44→18:00)
[2017-05-13] MEDS: IPRATROPIUM BROM 0.5 MG/2.5ML INH SOL NEB SCH ×4 (01:44→18:00)
[2017-05-13] MEDS: D5W 5% 1,000 ML IV SCH ×2 (01:53→09:26)
[2017-05-13] MEDS: PIPERACILLIN-TAZOB 2.25GM 50 ML IV SCH ×2 (01:53→09:26)
[2017-05-13] MEDS: PRO-STAT 64 30ML PO SCH ×3 (06:00→22:00)
[2017-05-13] MEDS: Boost Breeze 8 Ounces PO SCH ×3 (06:00→22:00)
[2017-05-13 06:33] LABS: Basophils # (auto) 0 uL; Basophils % (auto) 0.2 % (0.0-2.0); Eosinophils # (auto) 0.1 uL; Eosinophils % (auto) 0.4 % (0.0-7.0); Hematocrit 20.9 % (41.0-53.0); Lymphocytes % (auto) 6.8 % (10.0-50.0); Mean Corpuscular Hemoglobin 29.8 pg (28.0-32.0); Mean Corpuscular Hgb Conc. 33.4 g/dL (32.0-36.0); Mean Corpuscular Volume 89.5 fL (80.0-100.0); Mean Platelet Volume 10.3 fL (6.9-10.8); Monocytes # (auto) 2.4 uL; Monocytes % (auto) 17.2 % (0.0-12.0); Neutrophils # (auto) 10.6 uL; Neutrophils % (auto) 75.4 % (37.0-80.0); Platelet Count (auto) 142 10^3/uL (140-450); Red Cell Distribution Width 14.9 % (11.8-14.3); White Blood Cell 14.1 10^3/uL (4.4-10.8)
[2017-05-13 06:39] LABS: INR 1.1 (0.9-1.15)
[2017-05-13 06:49] LABS: BUN/Creatinine Ratio 14.3; Calcium 6.7 mg/dL (8.5-10.1); Potassium 3.2 mmol/L (3.5-5.1)
[2017-05-13] MEDS: PANTOPRAZOLE 40 MG/10 ML VIAL IV SCH (09:25)
[2017-05-13] MEDS: methylPREDNISolone SOD SUCC 40 MG/ML VL IV SCH (09:25)
[2017-05-13] MEDS: PIPERACILLIN-TAZOB 2.25GM 100 ML IV SCH (18:07)
[2017-05-14] MEDS: D5W 5% 1,000 ML IV SCH (00:05)
[2017-05-14] MEDS: ALBUTEROL SULF 2.5 MG/0.5ML(0.5%) NEB SOLN NEB SCH ×2 (00:25→08:11)
[2017-05-14] MEDS: IPRATROPIUM BROM 0.5 MG/2.5ML INH SOL NEB SCH ×2 (00:25→08:11)
[2017-05-14] MEDS: PIPERACILLIN-TAZOB 2.25GM 100 ML IV SCH ×2 (01:36→09:20)
[2017-05-14 05:00] VITALS: BP 112/68
[2017-05-14] MEDS: PRO-STAT 64 30ML PO SCH (06:00)
[2017-05-14] MEDS: Boost Breeze 8 Ounces PO SCH (06:00)
[2017-05-14 07:06] LABS: Hematocrit 25.3 % (41.0-53.0); Hemoglobin 8.5 g/dL (13.5-17.5); Mean Corpuscular Hemoglobin 29.8 pg (28.0-32.0); Mean Corpuscular Hgb Conc. 33.6 g/dL (32.0-36.0); Mean Corpuscular Volume 88.6 fL (80.0-100.0); Mean Platelet Volume 9.7 fL (6.9-10.8); Platelet Count (auto) 144 10^3/uL (140-450); Red Cell Distribution Width 14.8 % (11.8-14.3); White Blood Cell 13.5 10^3/uL (4.4-10.8)
[2017-05-14 07:11] LABS: BUN/Creatinine Ratio 13.1; Potassium 3.2 mmol/L (3.5-5.1)
[2017-05-14 07:31] LABS: Metamyelocytes % 0; Myelocytes % 0; Promyelocytes % 0; Reactive Lymphocytes 0
[2017-05-14 09:00] VITALS: BP 130/62
[2017-05-14] MEDS: methylPREDNISolone SOD SUCC 40 MG/ML VL IV SCH (09:20)
[2017-05-14] MEDS: PANTOPRAZOLE 40 MG/10 ML VIAL IV SCH (09:20)
[2017-05-14] MEDS ORDERED: AMINLIQ2 PO (10:33)
[2017-05-14] MEDS ORDERED: [UNRECOGNIZED DRUG - CODE] PO (10:33)
[2017-05-14 10:45] VITALS: BP 130/62
[2017-05-14 13:00] VITALS: BP 129/79
[2017-05-14 14:03] LABS: Platelet Estimate Adequate
[2017-05-14 14:04] LABS: Burr Cells FEW; Ovalocytes FEW
[2017-05-14] MEDS ORDERED: PIPERACILLIN-TAZOB 2.25GM 50 ML IV SCH (18:00)
== END 2017-05-14 17:19 | disposition hospice, home (50) | DRG 870 ==
LOC: ER 12:37 → TELE 12:38 → ICU WEST 05-01 04:22 → TELE-EAST 05-07 19:48
PROVIDERS: ADMIT Internal Medicine; ATTEND Internal Medicine
PROC: 5A1955Z Respiratory Ventilation, Greater than 96 Consecutive Hours (ICD-10-PCS; principal; 2017-04-30)
PROC: 0BH17EZ Insertion of Endotracheal Airway into Trachea, Via Natural or Artificial Opening (ICD-10-PCS; 2017-04-30)
PROC: 30233N1 Transfusion of Nonautologous Red Blood Cells into Peripheral Vein, Percutaneous Approach (ICD-10-PCS; 2017-05-04)
PROC: 06HM33Z Insertion of Infusion Device into Right Femoral Vein, Percutaneous Approach (ICD-10-PCS; 2017-05-05)
PROC: 5A1D70Z Performance of Urinary Filtration, Intermittent, Less than 6 Hours Per Day (ICD-10-PCS; 2017-05-06)
PROC: 5A1D70Z Performance of Urinary Filtration, Intermittent, Less than 6 Hours Per Day (ICD-10-PCS; 2017-05-10)
DX: A41.9 Sepsis, unspecified organism (principal); J96.01 Acute respiratory failure with hypoxia; N17.0 Acute kidney failure with tubular necrosis; J90 Pleural effusion, not elsewhere classified; J18.1 Lobar pneumonia, unspecified organism; J44.0 Chronic obstructive pulmonary disease with (acute) lower respiratory infection; E87.0 Hyperosmolality and hypernatremia; E87.2 Acidosis; E87.5 Hyperkalemia; D62 Acute posthemorrhagic anemia; B17.9 Acute viral hepatitis, unspecified; N13.30 Unspecified hydronephrosis; J44.1 Chronic obstructive pulmonary disease with (acute) exacerbation; Z68.1 Body mass index [BMI] 19.9 or less, adult; C67.9 Malignant neoplasm of bladder, unspecified; K70.9 Alcoholic liver disease, unspecified; I50.9 Heart failure, unspecified; E86.1 Hypovolemia; E87.6 Hypokalemia; I70.0 Atherosclerosis of aorta; L89.90 Pressure ulcer of unspecified site, unspecified stage; K76.89 Other specified diseases of liver; N18.9 Chronic kidney disease, unspecified; T38.0X5A Adverse effect of glucocorticoids and synthetic analogues, initial encounter; F41.9 Anxiety disorder, unspecified; I11.0 Hypertensive heart disease with heart failure; Y92.89 Other specified places as the place of occurrence of the external cause
CPT/HCPCS: 31500; 36415; 36600; 71010; 76700; 76775; 80048; 80053; 80076; 80202; 81001; 82105; 82270; 82306; 82728; 82805; 83605; 83735; 83880; 83970; 84100; 84132; 84484; 85007; 85014; 85018; 85025; 85027; 85610; 85730; 86141; 86704; 86803; 86850; 86900; 86901; 86920; 87040; 87070; 87077; 87081; 87186; 87205; 90935; 93005; 93306; 94002; 94003; 94640; 96365; 96366; 96367; 96372; 96375; 99291; C9113; J0330; J0696; J0885; J1642; J1815; J2250; J2543; J2704; J3430